=== PATIENT | male | born 1935 | race Caucasian/White ===

== ENCOUNTER 2017-12-15 06:53 | Inpatient (IN) | payer MEDICARE, OTHER, SELFPAY ==
--- NOTE | 2017-12-07 09:06 | EKG12_ITS ---
Test Reason : Blood Pressure : / mmHG Vent. Rate : 057 BPM Atrial Rate : 057 BPM P-R Int : 182 ms QRS Dur : 114 ms QT Int : 424 ms P-R-T Axes : 031 -56 -02 degrees QTc Int : 412 ms Sinus bradycardia Incomplete right bundle branch block Left anterior fascicular block Abnormal ECG Confirmed by RICHARD BUSTOS, SOLITARIO ([id number]), primer expeditor and drier JAN CARTER ([id number]) on 12/09/2017 12:55:47 PM Referred By: TOM Confirmed By:SOLITARIO RAMOS MD
[2017-12-07 09:09] VITALS: BP 140/67; PULSE 56; RESP 18; TEMP 36.9; O2SAT 97; BMI 27.4
[2017-12-07 10:39] LABS: Absolute Lymphocyte Count 0.83 X10^3/ul (0.83-4.51); Absolute Neutrophil Count 5.4 X10^3/uL (2.0-7.7); Basophil# 0.03 X10^3/uL; Basophil% 0.4 % (0-1); Eosinophils% 1.4 % (0-5); Hematocrit 42.6 % (40-54); Hemoglobin 14.4 g/dl (13.0-16.5); Lymphocyte # 0.83 X10^3/ul (4.0); Lymphocyte % 11.8 % (19-41); Mean Corp Hgb Conc 33.8 g/gl (32-36); Mean Corpuscular Volume 97.5 fL (80-94); Mean Platelet Vol. 9.7 fl (6.2-12.0); Monocyte# 0.59 X10^3/uL; Monocyte% 8.4 % (0-10); Neutrophil # 5.43 X10^3/uL (2.7-7.7); Neutrophil % 77.4 % (47-70); POSITIVE COUNT NO; POSITIVE DIFFERENTIAL NO; POSITIVE MORPHOLOGY NO; Platelet Count 201 K/mm3 (150-450); RBC Distribution Width CV 12.3 % (11.6-14.6); RBC Distribution Width SD 43.1 fl (35.1-43.9); Red Blood Count 4.37 M/mm3 (4.6-6.2)
[2017-12-07 10:45] LABS: International Normalized Ratio 1.1; Prothrombin Time (Protime)PT. 13.9 SECONDS (11.7-14.9)
[2017-12-07 10:46] LABS: Partial Thromboplast Time 30.7 Seconds (24.1-36.2)
[2017-12-07 11:05] LABS: AST(SGOT) 18 U/L (15-37); Alanine Aminotransfer ALT/SGPT 20 U/L (16-61); Albumin, Serum 3.5 g/dL (3.2-5.0); Alkaline Phosphatase 120 U/L (45-117); Anion Gap 5 (5-15); BUN 19 mg/dL (7-18); BUN/Creat Ratio 16.5 RATIO (10-20); Bilirubin, Direct 0.12 mg/dL (0.00-0.30); Calcium,Total 9.2 mg/dL (8.5-10.1); Chloride 109 mmol/L (98-107); Creatinine, Serum 1.15 mg/dL (0.70-1.30); EST Glomerular Filtration Rate 65 mL/min (>60); Est Glom Filt Rate - Afr Amer 78 mL/min (>60); Estimated Creatinine Clearance 54.36 ml/min; Globulin 4.1 g/dL (2.2-4.2); Glucose 79 mg/dL (74-106); Potassium 4.4 mmol/L (3.5-5.1); Protein, Total 7.6 g/dL (6.4-8.2); Sodium Level 142 mmol/L (136-145)
[2017-12-15] VITALS (12 sets, daily range): BP systolic 139–177; BP diastolic 74–106; PULSE 59–73; RESP 14–18; TEMP 35.9–36.7; O2SAT 93–99; BMI 27.4
[2017-12-15] MEDS: oxyCODONE HCl Cr 10 MG Tablet PO (08:23)
[2017-12-15] MEDS: Celecoxib 200 MG Capsule 400 MG PO (08:23)
[2017-12-15] MEDS: Acetaminophen 500 MG Tablet 1000 MG PO ×3 (08:24→21:36)
[2017-12-15] MEDS: Lactated Ringers 1,000 ML 999 ML IV (08:55)
--- NOTE | 2017-12-15 11:24 | OP.PCM_ITS ---
Report of Operation Date of Procedure: 12/15/17 Pre-Operative Diagnosis: Severe left shoulder cuff tear arthropathy Post-Operative Diagnosis: Severe left shoulder cuff tear arthropathy Surgery/Procedure Performed:: Left reverse total shoulder arthroplasty Description of Surgical Findings:: Well reduced shoulder airport manager: David Hudson Type of Anesthesia:: General/Regional Anesthesiologist: Johnny Peguero Special Medications: 2 g Ancef, 1 g TXA at incision, 1 g TXA closure, 10 mg Decadron, joint cocktail (5 mg Duramorph, 30 mL of 0.5% Ropivicaine, 1000 units of epinephrine, 30 mg of Toradol), 1 g vancomycin throughout the case IV Specimen's removed: Bony cuts Estimated Blood Loss (mL): 75 Fluids Replaced: 1000 milliliters crystalloid Description of Procedure: Components used 1. Equinox glenoid baseplate from [employer] Guru for reverse TSA 2. Equinox 38, +4 mm Glenosphere 3. Equinox 38 mm, 0mm humeral liner 4. Equinox reverse TSA humeral adapter tray 0mm 5. Equinox preserve humeral stem primary press-fit 12mm size Brief history/Operative indications: 82 yo m with history of L shoulder pain and cuff tear arthropathy. Patient failed conservative measures as mentioned in the H&P. After discussion of risk and benefits of reverse total shoulder replacement including but not limited to blood loss, DVTs, PEs, nerve vessel damage, infection, general risk of anesthesia including loss of life, instability and stiffness patient demonstrating understanding wish to proceed was able to sign informed consent. Medical clearance was obtained. Procedure: On the date of the procedure, patient's L upper extremity was marked in the preoperative area. Patient was taken back to the operating room where they were placed on the table in the supine position. Anesthesia assumed control of the C-spine and airway, then administered anesthetic. All bony prominences were identified well-padded, the head was secured and the patient was placed in the beachchair position at about 35? inclination. Anesthesia remained in control of the C-spine airway throughout the remainder of the procedure. Patient was then appropriately fastened to the table and the L upper extremity was prepped in a sterile fashion. The surgeons then scrubbed. Upon reentering the room, the L upper extremity was draped in a sterile fashion and the incision was marked out. Timeout was called, everyone agreed upon the side, the site, the procedure to be performed, patient identity and antibiotics given. Incision was taken down through skin and subcutaneous tissue, fat down to fascia. The stripe of the deltopectoral interval and cephalic vein were identified and blunt dissection was used to retract the deltoid. The cephalic vein was retracted laterally. Clavipectoral fascia was then incised and a cobra retractor was placed in the wound. The proximal one third of the pectoralis major insertion was released. Pectoralis tendon insertion was used to tenodesed the biceps tendon which was identified in the bicipital groove. Tenodesis was done with #1 Vicryl. Proximally we followed the biceps tendon after transecting it into the rotator interval. The rotator interval was split and the arm was externally rotated. The split was 1 cm medial to the bicipital groove. Subscapularis tendon was released. We released down the anterior portion of the humeral head and a owusu elevator was used to release the inferior portion of the humeral head. The arm was externally rotated and the shoulder was dislocated. The Red Guru humeral head cutting guide was used to make humeral cut. This was done at 20? retroversion. Once his humeral head cut was made humerus was retracted out of the way and the glenoid was exposed. After exposing the glenoid, the labrum and the remaining proximal biceps were debrided. At this time we are able to view the entire outer edge of the glenoid. A central pin was placed we sequentially reamed over this central pin to 38mm. Once this was completed the central pedicle was drilled. The glenoid baseplate was impacted into place. Wound was closely irrigated out with normal saline we then drilled sequentially for 4 screws. Screws were placed superiorly and inferiorly and tightened down the screws. Then anteriorly and posteriorly. Once the screws were appropriately tightened into place the glenoid baseplate was compressed against the exposed subchondral bone. Locking caps were placed and a 38, +4mm glenosphere was impacted into place engaging the Castillo taper. The central screw was then tightened into place. Attention was then turned towards the humerus. The humerus was again externally rotated exposing the proximal portion of the humerus. Central canal finder was then used to open up the canal. We then broached to a 12mm stem. We trialed the 0mm liner, with the 0mm humeral baseplate. We obtained an adequate reduction at this time with a nice stable shoulder. Good internal rotation to the gluteus, forward elevation to 140?, external rotation to 20?. Final components were then assembled on the back table, trials were removed and the wound was copiously irrigated with normal saline after dislocating the shoulder. Once the final components were assembled they were impacted into place. Shoulder was then reduced and found to be stable with good range of motion. Subscapularis tendon was repaired using #2 FiberWire. Wound was then copiously irrigated out by 1 L of normal saline lavage. The deltopectoral fascia was then closed using #1 Vicryl skin was closed using 2-0 Vicryl interrupted sutures and final skin closure was done with 3-0 Monocryl. Steri- Strips are placed for final skin closure. Sterile dressing was placed patient was then placed in a sling and awakened by anesthesia. Patient was then transferred to the PACU for recovery. Postoperative plan: Patient will be admitted to the hospital overnight. They will get physical therapy starting in 2 weeks with normal postoperative regimen. Patient will be placed on 325 mg aspirin daily for DVT prophylaxis. The first postoperative appointment will be in 2 weeks for wound check and initiation of phase 1 physical therapy. During the course of the procedure the physician photography assistant played a vital role. His intimate knowledge of my steps in the procedure aided in safe and expedient completion of the procedure. The PA played a vital rolls in positioning particularly in obtaining the appropriate beach chair position and securing the patient's body and head to the table. The PA was also vital in the retraction of soft tissues during the exposure and especially the glenoid work as this is a vital part of the procedure to prevent neurovascular damage. the PA was also vital and protecting soft tissues during times of bony cuts and reaming. He also played a vital role in closure with my direct supervision. The PA was also important during reduction and dislocation of the joint and trials intraoperatively. Grafts/Implants Used: ExacTech preserved stem - Complications None - Admit VTE Documentation VTE Present on Admission: No VTE Mechan Device Prophylaxis: SCD's VTE Pharm Prophylaxis ordered?: Yes
[2017-12-15] MEDS: Clindamycin 600 MG/50 ML BAG 100 MG IV (11:38)
--- NOTE | 2017-12-15 13:40 | RAD_ITS ---
STUDY: X-RAY - LEFT SHOULDER REASON FOR EXAM: Male, 82 years old. Total left shoulder replacement. TECHNIQUE: 2 view(s) of the shoulder. COMPARISON: None. FINDINGS: The patient is status post left reverse shoulder replacement. There is good alignment. Postoperative soft tissue changes. RAD/Shoulder One View IMPRESSION: Status post left reverse shoulder replacement. There is good alignment. Electronically Signed: Meir Stevens MD at 14:32 EDT Tel [phone], Service support ,
[2017-12-15] MEDS: Lactated Ringers 1,000 ML 125 ML IV (15:58)
[2017-12-15] MEDS: Glucerna Shake 120 ML LIQUID PO (17:28)
[2017-12-16] MEDS: Lactated Ringers 1,000 ML 125 ML IV (00:24)
[2017-12-16 03:30] VITALS: BP 144/78; PULSE 79; RESP 18; TEMP 36.6; O2SAT 97
[2017-12-16 03:50] VITALS: PULSE 79
[2017-12-16] MEDS: 0.9% NaCl Peripheral Flush Adult/Peds IV (05:28)
[2017-12-16] MEDS: Acetaminophen 500 MG Tablet 1000 MG PO (05:28)
[2017-12-16] MEDS: oxyCODONE 5 MG Tablet PO (07:03)
[2017-12-16 07:55] VITALS: BP 125/62; PULSE 60; RESP 18; TEMP 36.6; O2SAT 98
[2017-12-16] MEDS: Aspirin 325 MG Tablet PO (08:07)
[2017-12-16] MEDS: predniSONE 5 MG Tablet 2.5 MG PO (08:07)
[2017-12-16] MEDS: Glucerna Shake 120 ML LIQUID PO (08:07)
[2017-12-16] MEDS: Multivitamins,Ther W-Minerals Tablet 1 TABLET PO (08:07)
[2017-12-16 08:08] VITALS: PULSE 60
[2017-12-16] MEDS: Famotidine 20 MG Tablet PO (08:08)
[2017-12-16] MEDS: Metoprolol(XL)Succ 25 MG Tablet PO (08:08)
[2017-12-16] MEDS: Senna/Docusate Sodium 1 Tablet 2 TABLET PO (08:15)
--- NOTE | 2017-12-16 09:35 | PN.ORTHO_ITS ---
Subjective: The patient was sitting in bedside chair upon examination. Patient denies any chest pain, shortness of breath, dizziness, lightheadedness, nausea or vomiting , or calf pain. Pain is controlled on medications. No adverse overnight events. Overall patient is doing very well. Plan is for discharge home today. Objective: Dressing is overall clean dry and intact. One small drop of bloody discharge Ultra-sling fitting appropriately Sensation intact to axillary, radial, median, and ulnar distribution Motor intact to AIN, PIN, and ulnar nerve - Physical Exam General: Alert, Oriented x3, Cooperative, No apparent distress Vital Signs Temp Pulse Resp BP Pulse Ox 97.8 F 60 18 125/62 H 98 12/16/17 07:55 12/16/17 08:08 12/16/17 07:55 12/16/17 07:55 12/16/17 07:55 Oxygen Flow Rate (L/min) 1.5 Oxygen Delivery Method Room Air Weight: 91.8 kg Body Mass Index (BMI) 27.4 Intake and Output for Last 24 Hours 12/14/17 12/15/17 12/16/17 23:59 23:59 23:59 Intake Total 1869 / 1869 1621 / 1621 Output Total 550 / 550 Balance 1869 / 1869 1071 / 1071 Medical Necessity - Tobacco Use Smoking Status: Never smoker Assessment/Plan 1. S/P left reverse total shoulder arthroplasty POD #1 2. Continue Pain Medications: Tylenol and OxyIR 3. DVT Prophylaxis: Aspirin 325 mg once daily 4. PT/OT: Okay to work on elbow, hand, and wrist range of motion. Okay for pendulum exercises. Will start outpatient physical therapy 2 weeks postoperatively 5. H & H: 14.4/42.6, asymptomatic 6. Encouraged Incentive Spirometry 7. Disposition: Orthopedically stable, plan is for discharge home today. [facility] Patient will follow postoperative instructions.
--- NOTE | 2017-12-16 09:50 | DCINST_ITS ---
Discharge Diet: No Restrictions Discharge Activity: May Not Drive May shower in (days): 1 - Turned dressing away from water Ice area for (Minutes): 20 - Ice area for 20 minutes each hour while awake Weight Bearing Status: No weight bearing - Left upper extremity Keep extremity elevated above heart level: Operative Extremity Call your doctor if your incision/area has: Continuous Slow Oozing, Sudden Increased Bleeding, Increased Pain/ Swelling, Increased Redness, Foul Smelling Discharge Call your doctor if you observe: Fever of 101 or Higher, Coldness, Increased Pain, Numbness or Tingling, Change in Color Remove Dressing in (days):: 4 - Okay to remove dressing on December 20, 2017 Additional Instructions: Follow [facility] postop instructions Continue with UltraSling at all times. Okay to come out 3-4 times daily to work on range of motion of left elbow, wrist, and hand. Okay to work on pendulum exercises. Will begin outpatient therapy 2 weeks postoperatively. Allergies/Adverse Reactions: Allergies Penicillins Allergy (Verified 12/07/17 08:50) Unknown Medications to take at Discharge Multivit-Min/FA/Lycopen/Lutein [Centrum Silver Tablet] 1 each PO DAILY 12/27/16 Prednisone 2.5 mg PO DAILY 12/27/16 Cholecalciferol (Vitamin D3) [Vitamin D3] 2,000 unit PO DAILY 12/07/17 Metoprolol(XL)Succ [Toprol Xl (Beta Christian)] 25 mg PO DAILY 12/07/17 Acetaminophen [Tylenol] 1,000 mg PO Q8 #90 tab 12/16/17 Aspirin 325 mg PO DAILY@0800 #14 tab 12/16/17 Famotidine [Pepcid] 20 mg PO DAILY #14 tab 12/16/17 Oxycodone [Oxyir] 5 - 10 mg PO Q4H PRN PRN 5 Days #60 tablet 12/16/17 Senna/Docusate Sodium [Senokot-S] 2 tab PO BID PRN PRN #20 tab 12/16/17 The following prescriptions were given: Oxycodone [Oxyir] 5 - 10 mg PO Q4H PRN PRN 5 Days #60 tablet PRN Reason: Pain Acetaminophen [Tylenol] 1,000 mg PO Q8 #90 tab Aspirin 325 mg PO DAILY@0800 #14 tab Famotidine [Pepcid] 20 mg PO DAILY #14 tab Senna/Docusate Sodium [Senokot-S] 2 tab PO BID PRN PRN #20 tab PRN Reason: Constipation Primary Care Physician: Urban Espinoza MD [Primary Care Provider] - Please Follow Up With: Josep Ortiz MD When: 12/30/17 @ 1:45 pm Please Follow Up With: [facility] When: 12/30/17 @ 3:00 pm with Matt
--- NOTE | 2017-12-16 10:08 | CASEMGMT ---
RN OLY Face to Face with patient for initial transition planning/care coordination assessment. RN CM introduced self and role at [facility]. Patient sitting in chair, alert and oriented. Patient willing to participate in assessment and is able to answer all questions appropriately. Care providers, pharmacy, and demographics verified. See link attached. Patient wishes to discharge home, denies need for home health at this time. Patient states he has no further needs or concerns at this time. CM to follow for discharge planning needs that may arise. Disposition plan: Patient to discharge home with family support and follow-up plans in place.
[2017-12-16 12:09] VITALS: BP 117/51; PULSE 62; RESP 18; TEMP 37.1; O2SAT 98
== END 2017-12-16 12:21 | disposition home or self-care (01) | DRG 483 ==
LOC: ACINP 06:54 → MS3 08:18
PROVIDERS: Anesthesiology; Admitting Provider Specialist; Family Provider Family Medicine; PCP Family Medicine; Visit Provider Specialist
PROC: 0RRK00Z Replacement of Left Shoulder Joint with Reverse Ball and Socket Synthetic Substitute, Open Approach (ICD-10-PCS; CPT 23472; principal; 2017-12-15 10:25)
DX: M19.012 Primary osteoarthritis, left shoulder (principal); I12.0 Hypertensive chronic kidney disease with stage 5 chronic kidney disease or end stage renal disease; S46.012A Strain of muscle(s) and tendon(s) of the rotator cuff of left shoulder, initial encounter; W19.XXXA Unspecified fall, initial encounter; Y93.9 Activity, unspecified; Y92.9 Unspecified place or not applicable; Y99.9 Unspecified external cause status; N18.9 Chronic kidney disease, unspecified; I73.9 Peripheral vascular disease, unspecified; Z79.82 Long term (current) use of aspirin; Z79.52 Long term (current) use of systemic steroids; Z79.899 Other long term (current) drug therapy; Z85.528 Personal history of other malignant neoplasm of kidney; Z85.46 Personal history of malignant neoplasm of prostate; Z90.5 Acquired absence of kidney; Z90.79 Acquired absence of other genital organ(s)
CPT/HCPCS: 73020; 80048; 80076; 85025; 85610; 85730; 87081; 93005; 97165; 97530; 97535; 97802; C1776; J7040; J7120; A4216

== ENCOUNTER 2020-04-24 07:05 | Emergency (ER) | payer MEDICARE, OTHER, SELFPAY ==
[2020-04-24 07:10] VITALS: BP 171/87; PULSE 82; RESP 17; TEMP 36.2; O2SAT 95; BMI 25.7
[2020-04-24 07:15] VITALS: O2SAT 95
--- NOTE | 2020-04-24 07:18 | EKG12_ITS ---
Test Reason : SOB Blood Pressure : / mmHG Vent. Rate : 080 BPM Atrial Rate : 080 BPM P-R Int : 272 ms QRS Dur : 154 ms QT Int : 424 ms P-R-T Axes : 087 -34 092 degrees QTc Int : 489 ms Sinus rhythm with 1st degree A-V block Left axis deviation Left bundle branch block Abnormal ECG Confirmed by ELZA BUSTOS, ROWENA ([id number]), development editor TERESA ALEXIS ([id number]) on 04/29/2020 2:14:49 PM Referred By: DIANELYS Confirmed By:ROWENA BERTRAND MD
--- NOTE | 2020-04-24 07:20 | ED.DCSUM_ITS ---
History of Present Illness Chief Complaint: Fall Informant: Patient, Family Onset: - - Varies depending on symptom. Please read HPI narrative. Context: Sudden Onset Timing: Continuous - Shortness of breath has been constant since onset i.e. today per son, Intermittent - Multiple recent falls per son Quality: Dyspnea, dyspnea on exertion and wheezing. History of chronic cough Location: Respiratory, left-sided chest pain and left forearm trauma Current Severity: Mild Maximum Severity: Moderate Worsened by: Dyspnea with exertion Relieved by: Nothing Associated Symptoms: Rhinorrhea, congestion that is chronic Narrative: Patient is an 84-year-old male who was brought to the emergency department because of frequent falls. His most recent fall was yesterday. He is slightly disoriented, which is not normal for him per son. There is no history of head trauma. He denies headache. He denies nausea or vomiting. He denies visual, ocular auditory symptoms. He does report congestion postnasal drainage that is chronic and he takes Tensilon Perles for his chronic cough. He does report allergies. He denies history of asthma or COPD. He denies history of smoking. The cough is nonproductive. Per son the shortness of breath was noted today and he has increased shortness breath with activity. He denies chest discomfort. He denies nausea or vomiting. He denies urinary symptoms. He denies black or maroon stool. Last tetanus is unknown. He is on a baby aspirin a day. He is on no other antiplatelet and on no anticoagulant. Spoke with son independently outside the room. He is concerned because his father had frequent falls. His social circular has been extremely limited due to COVID. He has had problems remembering what he is doing the day. As far as disorientation to time this is probably a new symptom/complaint. He states his brother presently lives with his father and mother. He has had several falls over the last several days. Prior similar symptoms: No Recent Illness/Hospitalization: No Past Medical History - Allergies and Home Meds Allergies/Adverse Reactions: Allergies Penicillins Allergy (Verified 04/24/20 07:06) Unknown Primary Care Physician: Urban Espinoza MD [Primary Care Provider] - Prior records reviewed: Yes Surgical History: noncontributory Lives: Spouse/ Significant Other Smoking Status: Never smoker Alcohol: None Drugs: None Review of Systems General: Reports: Chills, Sweats. Denies: Fever, Malaise, Subjective Eyes: Denies: Visual changes - bilaterally, Blurred Vision - bilaterally ENT: Reports: Rhinorrhea. Denies: Bilateral ear pain, Sore throat Cardiovascular: Reports: Chest pain - Due to trauma, left side. Denies: Palpitations, Heart racing Respiratory: Reports: Dyspnea, Cough, Dyspnea on exertion. Denies: Sputum, O rthopnea, Paroxysmal nocturnal dyspnea Gastrointestinal: Denies: Abdominal pain, Nausea, Vomiting, Diarrhea, Melena, Hematochezia Genitourinary: Denies: Dysuria, Hematuria, Frequency Musculoskeletal: Denies: Myalgias, Arthralgias, Neck pain, Back pain, Swelling, Extremity Pain Skin: Reports: Abrasions, Wounds. Denies: Rash Neurological: Reports: Weakness. Denies: Headache Endocrine: Denies: Polyuria Hematologic: Denies: Easy bruising, Easy bleeding Allergy: Denies: Uticaria Physical Exam Vital Signs/Narrative: Vital Signs Temp Pulse Resp BP Pulse Ox 04/24/20 07:15 95 04/24/20 07:10 97.2 F L 82 17 171/87 H 95 Inital Vital Signs reviewed: Yes General: Well nourished, Well developed, Acute Distress. Negative for: No Acute Distress Head: Normocephalic, Atraumatic Eyes: Perrl, EOMI. Negative for: Pale conjunctiva, Scleral icterus ENT: Moist mucous membranes, TM's clear, Nasal congestion. Negative for: No rhinorrhea, Sinus tenderness Neck: Supple, Nontender, No lymphadenopathy, No JVD Cardiovascular: Regular rate, Regular rhythm, No murmurs, Normal S1, Normal S2 Respiratory: Rhonchi, Decreased Air Movement, Chest tenderness. Negative for: No distress, CTA bilaterally, Chest nontender Abdomen: Soft, Nontender, Nondistended, Normal bowel sounds Rectal: Deferred Back: Nontender, Normal Inspection Extremities: Nontender, Edema. Negative for: No edema, Tenderness, Calf Tenderness Skin: Normal color, No rash, Trauma - To pull abrasions skin tears dorsal ulnar soft patient. Negative for: Cyanosis, Diaphoresis, Jaundice, No Trauma Neurological: Alert, Cranial nerves II-XII grossly intact, Normal Strength, Normal Sensation. Negative for: Oriented x3 Psychological: Normal affect, Normal Mood Diagnostic/Tx/Re-eval Chest X-Ray - ED: 2 View, Read by ED Physician, Normal, - - View chest x-ray reveals limited inspiratory volume. Atelectasis with changes due to poor/minimal inspiratory volume. There is a left prosthetic shoulder that is new since 2017. Difficult to read much else due to limited inspiratory volume. There is degenerative arthritic changes noted of the dorsal vertebral body. Marsh rgical clips are noted as well. 04/24/20 07:18 Chest PA and Lateral [RAD] Stat Laboratory Results 04/24/20 07:42 WBC 8.2 RBC 3.67 L Hgb 12.3 L Hct 37.1 L MCV 101.1 H MCH 33.5 H MCHC 33.2 RDW Std Deviation 46.8 H RDW Coeff of Annalisa 12.5 Plt Count 144 L MPV 9.5 Immature Gran % (Auto) 0.500 Neut % (Auto) 74.9 H Lymph % (Auto) 9.4 L Bullock % (Auto) 14.3 H Eos % (Auto) 0.7 Baso % (Auto) 0.2 Absolute Neuts (auto) 6.1 Absolute Lymphs (auto) 0.77 L Nucleated RBC % 0 Impressions Chest X-Ray 04/24/20 07:55 IMPRESSION: Poor inspiration with some bibasilar atelectasis. Electronically Signed: Georges Godfrey MD at 8:25 EDT Tel , Service support , 04/24/20 07:55 Chest PA and Lateral [RAD] Stat Laboratory Results 04/24/20 04/24/20 04/24/20 07:42 07:42 07:42 WBC 8.2 RBC 3.67 L Hgb 12.3 L Hct 37.1 L MCV 101.1 H MCH 33.5 H MCHC 33.2 RDW Std Deviation 46.8 H RDW Coeff of Annalisa 12.5 Plt Count 144 L MPV 9.5 Immature Gran % (Auto) 0.500 Neut % (Auto) 74.9 H Lymph % (Auto) 9.4 L Bullock % (Auto) 14.3 H Eos % (Auto) 0.7 Baso % (Auto) 0.2 Absolute Neuts (auto) 6.1 Absolute Lymphs (auto) 0.77 L Nucleated RBC % 0 Sodium 141 Potassium 4.0 Chloride 109 H Carbon Dioxide 27.0 Anion Gap 5 BUN 24 H Creatinine 1.24 Estim Creat Clear Calc 48.67 Est GFR (MDRD) Af Amer 71 Est GFR (MDRD) Non-Af 59 L BUN/Creatinine Ratio 19.4 Glucose 119 H Lactic Acid 1.3 Calcium 9.2 Total Bilirubin 1.10 H AST 16 ALT 19 Alkaline Phosphatase 76 Troponin I < 0.015 Total Protein 7.7 Albumin 3.6 Globulin 4.1 Albumin/Globulin Ratio 0.9 COVID-19 (DOROTEO) 04/24/20 08:00 WBC RBC Hgb Hct MCV MCH MCHC RDW Std Deviation RDW Coeff of Annalisa Plt Count MPV Immature Gran % (Auto) Neut % (Auto) Lymph % (Auto) Bullock % (Auto) Eos % (Auto) Baso % (Auto) Absolute Neuts (auto) Absolute Lymphs (auto) Nucleated RBC % Sodium Potassium Chloride Carbon Dioxide Anion Gap BUN Creatinine Estim Creat Clear Calc Est GFR (MDRD) Af Amer Est GFR (MDRD) Non-Af BUN/Creatinine Ratio Glucose Lactic Acid Calcium Total Bilirubin AST ALT Alkaline Phosphatase Troponin I Total Protein Albumin Globulin Albumin/Globulin Ratio COVID-19 (DOROTEO) Not Detected - EKG Initial EKG Interpretation: Sinus Rhythm - Minus rhythm with a first-degree AV block. Ventricular rate is 80. WA interval is 272 ms. QS duration 154 ms. QT interval 424 ms. Left axis with evidence of a left bundle branch block. There is no evidence of acute ischemic changes. Prior: Changed - Left bundle branch block is new. There was evidence of an incomplete right bundle branch block and left anterior fascicular block on December 07, 2017. The first-degree AV block is new. - Medical Decision Making Chief complaint of dyspnea with rhonchi will evaluate for infectious cause, trauma, congestive heart failure, pneumothorax/hemothorax. Because of disorie ntation appropriate labs were obtained to assess for sepsis. Patient was reassessed at 0910. He is wheeze free. He is moving significantly more air. He does feel better. He and his son were informed of his results and awaiting results of COVID 19 test. ED Disposition - Plan for ED Patient: Disposition: Home or Assisted Living Diagnosis: Bronchitis with bronchospasm Instructions: ED Upper Resp Infec No Abx Tx Prescriptions: Albuterol Inhaler [Ventolin Hfa] 2 puff INHALATION Q4H PRN PRN #1 inhaler PRN Reason: Wheezing Prescription Printed Referrals: Urban Espinoza MD [Primary Care Provider] - 3-5 Days if not improving
--- NOTE | 2020-04-24 07:55 | RAD_ITS ---
STUDY: X-RAY CHEST REASON FOR EXAM: Male, 84 years old. DYSPNEA, BILATERAL RONCHI AND LEFT SIDED RIB PAIN. FELL YESTERDAY LANDING ON LEFT SIDE. TECHNIQUE: PA and lateral views of the chest. COMPARISON: 01/04/2017 FINDINGS: Poor inspiration with some bibasilar atelectasis. There is no demonstrated pleural abnormality. Normal size heart. Normal mediastinum and valentin. Normal visualized pulmonary arteries. Normal visualized aortic arch and descending thoracic aorta. Normal visualized thoracic spine. Status post left shoulder reverse arthroplasty. There is no demonstrated abnormality of the visualized soft tissue structures of the upper abdomen. RAD/Chest PA and Lateral IMPRESSION: Poor inspiration with some bibasilar atelectasis. Electronically Signed: Georges Godfrey MD at 8:25 EDT Tel , Service support ,
[2020-04-24 07:56] LABS: Absolute Lymphocyte Count 0.77 X10^3/uL (0.83-4.51); Absolute Neutrophil Count 6.1 X10^3/uL (2.0-7.7); Basophil# 0.02 X10^3/uL; Basophil% 0.2 % (0-1); Eosinophil# 0.06 X10^3/uL; Eosinophils% 0.7 % (0-5); Hematocrit 37.1 % (40-54); Hemoglobin 12.3 g/dL (13.0-16.5); Lymphocyte # 0.77 X10^3/ul (4.0); Lymphocyte % 9.4 % (19-41); Mean Corp Hgb Conc 33.2 g/dL (32-36); Mean Corpuscular Hgb 33.5 pg (27.0-32.0); Mean Corpuscular Volume 101.1 fL (80-94); Mean Platelet Vol. 9.5 fl (6.2-12.0); Monocyte# 1.17 X10^3/uL; Monocyte% 14.3 % (0-10); NRBC Flagged by Analyzer 0 % (0-5); Neutrophil # 6.14 X10^3/uL (2.7-7.7); Neutrophil % 74.9 % (47-70); Platelet Count 144 K/mm3 (150-450); RBC Distribution Width CV 12.5 % (11.6-14.6); RBC Distribution Width SD 46.8 fl (35.1-43.9); Red Blood Count 3.67 M/mm3 (4.6-6.2); White Blood Count 8.2 K/mm3 (4.4-11.0)
[2020-04-24 08:15] VITALS: PULSE 85; RESP 34; O2SAT 96
[2020-04-24] MEDS: Albuterol 2.5 MG/3 ML VIAL.NEB. INHALATION ×2 (08:15→08:26)
[2020-04-24 08:16] LABS: ALB/GLOB Ratio 0.9 RATIO (0.9-2.4); AST(SGOT) 16 U/L (15-37); Alanine Aminotransfer ALT/SGPT 19 U/L (16-61); Albumin, Serum 3.6 g/dL (3.2-5.0); Alkaline Phosphatase 76 U/L (45-117); Anion Gap 5 (5-15); BUN 24 mg/dL (7-18); BUN/Creat Ratio 19.4 RATIO (10-20); Calcium,Total 9.2 mg/dL (8.5-10.1); Chloride 109 mmol/L (98-107); Creatinine, Serum 1.24 mg/dL (0.70-1.30); EST Glomerular Filtration Rate 59 mL/min (>60); Est Glom Filt Rate - Afr Amer 71 mL/min (>60); Estimated Creatinine Clearance 48.67 ml/min; Globulin 4.1 g/dL (2.2-4.2); Glucose 119 mg/dL (74-106); Protein, Total 7.7 g/dL (6.4-8.2); Sodium Level 141 mmol/L (136-145)
[2020-04-24 08:25] LABS: Lactic Acid 1.3 mmol/L (0.4-1.9)
[2020-04-24 09:19] VITALS: BP 136/81; PULSE 70; RESP 16; O2SAT 94
--- NOTE | 2020-04-24 10:42 | CM.ED ---
Social Work Consult: Resources Informant: Dr. Washington Met with patient son, Fritz in [facility] per patient permission. Fritz voicing that patient lives at home with patient spouse and other son in a 1-story home with a ramp to enter. Patient and patient spouse both use walkers. Patient has been falling more in the home per Fritz report and family has been exploring options for community support/mcc. Fritz reports that patient has a medical alert system through [facility]. Fritz comfortable with patient returning to home but inquiring about community resources/supports. This social sciences professor providing Fritz with list of private duty aides, adult day care, [facility]. Fritz thanking this social sciences professor for the information and plans to provide transportation to home for patient. Dr. Washington updated on above. Micky Hickey MSW, SHAHAB
[2020-04-24 11:16] VITALS: BP 112/71; PULSE 68; RESP 18; O2SAT 97
== END 2020-04-24 11:27 | disposition home or self-care (01) ==
PROVIDERS: Emergency Provider Emergency Medicine; PCP Family Medicine
DX: J40 Bronchitis, not specified as acute or chronic (principal); J98.01 Acute bronchospasm; I44.0 Atrioventricular block, first degree; I44.7 Left bundle-branch block, unspecified; R41.0 Disorientation, unspecified; R29.6 Repeated falls; Z79.82 Long term (current) use of aspirin; Z79.52 Long term (current) use of systemic steroids; Z79.899 Other long term (current) drug therapy
CPT/HCPCS: 71046; 80053; 83605; 84484; 85025; 87635; 93005; 94640; 99251; 99284; A4216; G0463; U0003

== ENCOUNTER 2020-08-30 14:45 | Outpatient (RCR) | payer MEDICARE, OTHER, SELFPAY | END 2020-08-30 23:59 | LOC: IMMUN 14:45 | PROVIDERS: PCP Family Medicine; Referring Provider Family Medicine; Visit Provider Family Medicine | DX: Z23 Encounter for immunization (principal) | CPT/HCPCS: 0011A; 0012A ==